=== PATIENT | male | born 1970 | race Caucasian/White ===

== ENCOUNTER 2019-05-26 12:42 | Emergency (ER) | payer MEDICAID ==
[~2019-05-26] VITALS: Ht 172.7 cm; Wt 74.8 kg
[2019-05-26 12:45] VITALS: BP 133/82
== END 2019-05-26 13:34 | disposition home or self-care (01) ==
LOC: ER 12:43
DX: F15.10 Other stimulant abuse, uncomplicated (principal); F17.200 Nicotine dependence, unspecified, uncomplicated
CPT/HCPCS: 99284